=== PATIENT | male | born 1990 | race Two or more races ===

== ENCOUNTER → 2017-10-30 | Emergency (ER) | payer OTHER ==
[~2017-10-30] VITALS: Ht 182.9 cm; Wt 77.1 kg
[~2017-10-30] MED LIST: KETO10TA2 PO
== END | disposition home or self-care (01) ==
LOC: ER 23:52
DX: M79.674 Pain in right toe(s) (principal)

== ENCOUNTER 2017-12-04 05:15 | Day surgery (SDC) | payer OTHER ==
[2017-12-04] MEDS ORDERED: ULTRACET PO (10:29)
== END 2017-12-04 14:25 | disposition home or self-care (01) ==
LOC: CIR.AMB 05:15
DX: K40.90 Unilateral inguinal hernia, without obstruction or gangrene, not specified as recurrent (principal); D17.6 Benign lipomatous neoplasm of spermatic cord

== ENCOUNTER 2019-01-02 23:35 | Emergency (ER) | payer OTHER ==
[~2019-01-02] VITALS: Ht 180.3 cm; Wt 77.1 kg
[~2019-01-02 23:35] MED LIST changes: +ULTRACET PO
[2019-01-03] MEDS ORDERED: KETO10TA2 PO (02:11)
[2019-01-03] MEDS ORDERED: AMOX-CLAV 875-1 EACH PO (02:11)
[2019-01-03] MEDS ORDERED: MUPIROCIN22 GM TOP (02:13)
== END 2019-01-03 02:36 | disposition home or self-care (01) ==
LOC: ER 23:35
DX: L73.2 Hidradenitis suppurativa (principal)